=== PATIENT | female | born 1970 | race Caucasian/White ===

== ENCOUNTER 2019-03-31 05:58 | Day surgery (SDC) | payer SELFPAY ==
[2019-03-24 16:05] VITALS: BMI 29.0
[2019-03-31] MEDS ORDERED: LIDOCAINE HCL 1% PRESERVATIVE FREE - 30ML VIAL ONE (07:19)
[2019-03-31] MEDS ORDERED: EPINEPHrine/PF 1 MG/1 ML (1:1,000) AMPULE ONE (07:19)
[2019-03-31] MEDS ORDERED: MIDAZOLAM HCL 2 MG/2 ML SINGLE DOSE VIAL ONE (07:55)
[2019-03-31] MEDS ORDERED: ONDANSETRON 4 MG/2 ML VIAL ONE ×2 (07:55→12:03)
[2019-03-31] MEDS ORDERED: DEXAMETHASONE SOD PHOSPHATE 4 MG/1 ML VIAL ONE ×2 (07:55→12:03)
[2019-03-31] MEDS ORDERED: fentaNYL CITRATE 250 MCG/5 ML VIAL ONE ×2 (07:56→10:21)
[2019-03-31] MEDS ORDERED: BACITRACIN 15 GM TUBE TOPICAL OINTMENT ONE (07:58)
[2019-03-31] MEDS ORDERED: PROPOFOL 20 ML ONE ×4 (08:37)
[2019-03-31] MEDS ORDERED: SUCCINYLCHOLINE CHLORIDE 200 MG/10 ML VIAL ONE (08:37)
[2019-03-31] MEDS ORDERED: ROCURONIUM BROMIDE 50 MG/5 ML VIAL ONE (08:51)
[2019-03-31] MEDS ORDERED: ceFAZolin SODIUM 1 GM VIAL ONE (09:09)
[2019-03-31] MEDS ORDERED: GUM MASTIC/STORAX/MSAL/ALCOHOL 1 DRP DROPSBTL MC ONE (12:09)
[2019-03-31] MEDS ORDERED: oxyCODONE HCL 5 MG TABLET PO PRN ×2 (12:57)
[2019-03-31] MEDS ORDERED: ONDANSETRON 4 MG/2 ML VIAL IVPUSH PRN (12:57)
[2019-03-31] MEDS ORDERED: LACTATED RINGERS SOLUTION 1,000 ML IV SCH (13:00)
[2019-03-31] MEDS ORDERED: oxyCODONE HCL 5 MG TABLET ONE (14:00)
[2019-03-31 14:23] VITALS: TEMP 98.3
[2019-03-31 15:22] VITALS: BP 130/82; PULSE 85
== END 2019-03-31 15:35 | disposition home or self-care (01) ==
LOC: FASU 05:58
PROVIDERS: ATTEND Surgery
PROC: 0J0M3ZZ Alteration of Left Upper Leg Subcutaneous Tissue and Fascia, Percutaneous Approach (ICD-10-PCS; 2019-03-31)
PROC: 0J0L3ZZ Alteration of Right Upper Leg Subcutaneous Tissue and Fascia, Percutaneous Approach (ICD-10-PCS; 2019-03-31)
PROC: 0J083ZZ Alteration of Abdomen Subcutaneous Tissue and Fascia, Percutaneous Approach (ICD-10-PCS; principal; 2019-03-31 09:16)
DX: Z41.1 Encounter for cosmetic surgery (principal)
CPT/HCPCS: 84703; 94760

== ENCOUNTER 2019-11-26 05:46 | Day surgery (SDC) | payer SELFPAY ==
[2019-11-22 16:25] VITALS: BMI 28.2
[2019-11-26] MEDS ORDERED: EPINEPHrine/PF 1 MG/1 ML (1:1,000) AMPULE ONE (07:17)
[2019-11-26] MEDS ORDERED: BACITRACIN 15 GM TUBE TOPICAL OINTMENT ONE ×3 (07:18→13:22)
[2019-11-26] MEDS ORDERED: LIDOCAINE HCL 1%, 10 MG/ML (20ML VIAL) ONE (07:18)
[2019-11-26] MEDS ORDERED: PROPOFOL 20 ML ONE ×4 (08:37)
[2019-11-26] MEDS ORDERED: ROCURONIUM BROMIDE 50 MG/5 ML SYRINGE ONE ×3 (08:37→11:48)
[2019-11-26] MEDS ORDERED: SUCCINYLCHOLINE CHLORIDE 200 MG/10 ML SYRINGE ONE (08:37)
[2019-11-26] MEDS ORDERED: fentaNYL CITRATE 250 MCG/5 ML VIAL ONE ×2 (08:37→11:11)
[2019-11-26] MEDS ORDERED: MIDAZOLAM HCL 2 MG/2 ML SINGLE DOSE VIAL ONE (08:37)
[2019-11-26] MEDS ORDERED: BACITRACIN 15 GM TUBE TOPICAL OINTMENT TP ONE (10:15)
[2019-11-26] MEDS ORDERED: DEXAMETHASONE SOD PHOSPHATE 4 MG/1 ML VIAL ONE (13:36)
[2019-11-26] MEDS ORDERED: ceFAZolin SODIUM 1 GM VIAL ONE ×2 (13:36)
[2019-11-26] MEDS ORDERED: LIDOCAINE HCL/PF 2% SDV 5ML VIAL ONE (13:36)
[2019-11-26] MEDS ORDERED: KETOROLAC TROMETHAMINE 30 MG/1 ML VIAL ONE (13:36)
[2019-11-26] MEDS ORDERED: ONDANSETRON 4 MG/2 ML VIAL ONE (13:36)
[2019-11-26] MEDS ORDERED: LIDOCAINE HCL 2% JELLY (5 ML/TUBE) ONE (13:36)
[2019-11-26] MEDS ORDERED: BENZOIN/ALOE VERA/STORAX/TOLU 58 ML BOTTLE ONE (13:57)
[2019-11-26] MEDS ORDERED: GUM MASTIC/STORAX/MSAL/ALCOHOL 1 DRP DROPSBTL MC ONE (13:58)
[2019-11-26] MEDS ORDERED: PROMETHAZINE HCL 25 MG/1 ML VIAL ONE (15:15)
[2019-11-26] MEDS: PROMETHAZINE HCL 25 MG/1 ML VIAL IVPUSH PRN ×2 (15:21→17:30)
[2019-11-26] MEDS ORDERED: ONDANSETRON 4 MG/2 ML VIAL IVPUSH PRN (15:21)
[2019-11-26] MEDS ORDERED: oxyCODONE HCL 5 MG TABLET PO PRN ×2 (15:21)
[2019-11-26 19:22] VITALS: BP 100/62; PULSE 66; TEMP 98
== END 2019-11-26 19:22 | disposition home or self-care (01) ==
LOC: FASU 05:46
PROVIDERS: ATTEND Surgery
PROC: 0J073ZZ Alteration of Back Subcutaneous Tissue and Fascia, Percutaneous Approach (ICD-10-PCS; 2019-11-26)
PROC: 0J093ZZ Alteration of Buttock Subcutaneous Tissue and Fascia, Percutaneous Approach (ICD-10-PCS; 2019-11-26)
PROC: 0J0F3ZZ Alteration of Left Upper Arm Subcutaneous Tissue and Fascia, Percutaneous Approach (ICD-10-PCS; 2019-11-26)
PROC: 0J0D3ZZ Alteration of Right Upper Arm Subcutaneous Tissue and Fascia, Percutaneous Approach (ICD-10-PCS; 2019-11-26)
PROC: 0J083ZZ Alteration of Abdomen Subcutaneous Tissue and Fascia, Percutaneous Approach (ICD-10-PCS; principal; 2019-11-26 08:00)
DX: Z41.1 Encounter for cosmetic surgery (principal)
CPT/HCPCS: 81025; 94760